=== PATIENT | female | born 1945 | race Caucasian/White ===

== ENCOUNTER 2021-02-04 14:09 | Emergency (ER) | payer MEDICARE ==
[~2021-02-04] VITALS: Ht 157.5 cm; Wt 108.9 kg
== END 2021-02-04 15:24 | disposition left against medical advice (07) ==
LOC: ER 14:09
DX: R07.9 Chest pain, unspecified (principal); Z53.20 Procedure and treatment not carried out because of patient's decision for unspecified reasons
CPT/HCPCS: 93005; 93010; 99283-25